=== PATIENT | male | born 2000 | race Hispanic/Latino ===

== ENCOUNTER 2022-11-11 08:48 | Emergency (ER) | payer SELFPAY ==
[~2022-11-11] VITALS: Ht 182.9 cm; Wt 127.0 kg
[2022-11-11] MEDS ORDERED: OMNI-PAC300 MG PO (09:04)
[2022-11-11] MEDS ORDERED: BACTRIM DS1 TAB PO (09:04)
[2022-11-11 09:51] VITALS: BP 130/91
== END 2022-11-11 09:55 | disposition home or self-care (01) | DRG 605 ==
LOC: ED 08:48
DX: S61.432A Puncture wound without foreign body of left hand, initial encounter (principal); L03.114 Cellulitis of left upper limb; W45.0XXA Nail entering through skin, initial encounter